=== PATIENT | female | born 1945 | race Two or more races ===

== ENCOUNTER 2020-03-05 16:39 | Emergency (ER) | payer BC, OTHER ==
[~2020-03-05] VITALS: Ht 152.4 cm; Wt 72.6 kg
[2020-03-05 16:47] VITALS: BP_SYST 154
[2020-03-05 17:15] LABS: BASOPHILS % (AUTO) 0.3 % (0.0-2.0); EOSINOPHILS # (AUTO) 0.6 K/uL (0.0-0.4); EOSINOPHILS % (AUTO) 5.6 % (0.0-4.0); HEMATOCRIT 34.6 % (36-48); HEMOGLOBIN 11.3 g/dL (12.0-16.0); LYMPHOCYTES # (AUTO) 2.5 K/uL (1.0-5.5); LYMPHOCYTES % (AUTO) 24.5 % (20.5-51.5); MEAN CORPUSCULAR HEMOGLOBIN 33 pg (27-31); MEAN CORPUSCULAR HGB CONC 33 % (32-36); MEAN CORPUSCULAR VOLUME 102 fL (79.0-98.0); MONOCYTES # (AUTO) 0.9 K/uL (0.0-1.0); MONOCYTES % (AUTO) 8.7 % (1.7-9.3); NEUTROPHILS # (AUTO) 6.3 K/uL (1.8-7.7); NEUTROPHILS % (AUTO) 60.9 % (40.0-70.0); PLATELET COUNT (AUTO) 131 K/uL (130-430); RED BLOOD CELL COUNT(AUTO) 3.39 MIL/uL (4.2-6.2); RED CELL DISTRIBUTION WIDTH 17.5 % (9.0-15.0); WHITE BLOOD COUNT (AUTO) 10.4 K/uL (4.8-10.8)
[2020-03-05 17:20] LABS: ANION GAP 9 (5-15); CALCIUM 9.4 mg/dL (8.4-11.0); CHLORIDE 102 mmol/L (98-107); CREATININE 5.44 mg/dL (0.55-1.30); GLUCOSE 145 mg/dL (70-99); POTASSIUM 4.5 mmol/L (3.5-5.1); SODIUM SERUM 137 mmol/L (136-145); UREA NITROGEN, BLOOD 45 mg/dL (8-21)
[2020-03-05 17:25] LABS: ALANINE AMINOTRANSFERASE 68 U/L (12-78); ALBUMIN 3.3 g/dL (3.4-4.8); ASPARTATE AMINOTRANSFERASE 31 U/L (10-37); TOTAL BILIRUBIN 0.3 mg/dL (0.0-1.0)
[2020-03-05 17:51] LABS: PROTHROMBIN TIME 10.2 SECS (9.5-12.5)
[2020-03-05] MEDS ORDERED: METO25TA3 PO (18:07)
[2020-03-05] MEDS ORDERED: APIX5TAB4 PO (18:07)
[2020-03-05] MEDS ORDERED: [UNRECOGNIZED DRUG - CODE] PO (18:07)
[2020-03-05] MEDS ORDERED: LOSA25TA3 PO (18:07)
[2020-03-05] MEDS ORDERED: CALC667T6 PO (18:07)
[2020-03-05] MEDS ORDERED: LIP40 PO (18:07)
[2020-03-05 19:23] VITALS: BP_SYST 154
== END 2020-03-05 19:20 | disposition home or self-care (01) ==
LOC: SED 16:39
DX: S72.431A Displaced fracture of medial condyle of right femur, initial encounter for closed fracture (principal); S00.83XA Contusion of other part of head, initial encounter; R55 Syncope and collapse; E11.9 Type 2 diabetes mellitus without complications; Z79.899 Other long term (current) drug therapy; W18.39XA Other fall on same level, initial encounter; Y93.89 Activity, other specified; Y92.89 Other specified places as the place of occurrence of the external cause; Y99.8 Other external cause status
CPT/HCPCS: 36415; 70450-TC; 71045; 73564; 73700-TC; 80053; 84484; 85025; 85610-TC; 85730-TC; 93005; 99285